=== PATIENT | male | born 1955 | race Caucasian/White ===

== ENCOUNTER 2020-10-31 20:30 | Emergency (ER) | payer OTHER ==
[2020-10-31 20:54] VITALS: BP 122/74; PULSE 83; TEMP 98; BMI 25.3
[2020-10-31] MEDS ORDERED: ACETAMINOPHEN 325 MG TABLET (FP) PO ONE (22:12)
== END 2020-10-31 23:20 | disposition home or self-care (01) ==
LOC: JER 20:30
DX: S09.90XA Unspecified injury of head, initial encounter (principal); J01.00 Acute maxillary sinusitis, unspecified
CPT/HCPCS: 70450-TC; 99284-25